=== PATIENT | male | born 1955 | race Caucasian/White ===

== ENCOUNTER 2018-11-24 01:46 | Emergency (ER) | payer BC, OTHER ==
[~2018-11-24] VITALS: Ht 177.8 cm; Wt 108.9 kg
[2018-11-24] MEDS ORDERED: NS (IVPB) 100 ML ONE ×3 (01:47→02:20)
[2018-11-24] MEDS ORDERED: EPINEPHrine INJECTION 1 MG/ML AMP ONE (01:47)
[2018-11-24] MEDS ORDERED: NS 1000 ML IV BAG IV ONE (01:49)
[2018-11-24] MEDS ORDERED: EPINEPHrine 0.1 MG/ML 10 ML (HOSPIRA) SYR IJ ONE (01:49)
[2018-11-24] MEDS ORDERED: SODIUM BICARB 8.4% 50 MEQ/50 ML (ABBOTT) SYR INJ ONE (01:49)
[2018-11-24] MEDS ORDERED: NS IV 1000 ML 1,000 ML ONE (01:52)
[2018-11-24] MEDS ORDERED: MIDAZOLAM 5 MG/5 ML (VERSED) VIAL ONE (01:59)
--- NOTE | 2018-11-24 02:00 | ED CPR ---
HPI-CPR General Stated Complaint: UNRESPONSIVE Source of Information: Family Exam Limitations: Other (intubated) History of Present Illness Date Seen by Provider: November 24, 2018 Time Seen by Provider: 01:35 Initial Comments The patient presents to the ER by EMS from home with chief complaint provided by his spouse who arrived shortly after his arrival. She says that he had awoken her a little before 1:00 in the morning complaining of some left chest pain that radiated down into his left arm. She said he went to go get his hat because she was going to take him into the ER and he collapsed in front of her and stopped breathing. She started CPR at the scene. EMS was summonsed and arrived within 10 minutes. She started CPR at 0100. EMS reports the patient had V. fib on the monitor and delivered a total of 4 shocks, 5 rounds of epinephrine en route as w ell as 300 mg of amiodarone and intubated the patient in the field. The used a 7.5 ET tube and had it at 26 at the teeth. The patient was estimated to be 230 pounds 5 foot 10 according to his . Patient's blood sugar was 1:30 per EMS. Return of spontaneous circulation was achieved just minutes prior to arrival to the ER. The denies a history of coronary disease, blood clotting disorders. He did just recently travel from [place] back to [place] via airplane in the last 3 days. He does not take any medications. He has no true allergies but his says that the Valium makes him act weird. Allergies and Home Medications Allergies Coded Allergies: diazepam (Verified Adverse Reaction, Unknown, acts weird, 11/24/18) Patient Home Medication List Home Medication List Reviewed: Yes Review of Systems Review of Systems Constitutional: see HPI EENTM: See HPI Respiratory: See HPI Cardiovascular: Chest Pain; Denies Edema Gastrointestinal: See HPI Genitourinary: See HPI Musculoskeletal: see HPI Psychiatric/Neurological: See HPI Past Amaimhl-Gokrtx-Vwjuws Hx Patient Social History Recreational Drug Use: No Smoking Status: Current Someday Smoker (occasional cigar) Type Used: Cigars (occasional) Physical Exam Vital Signs Capillary Refill : Height, Weight, BMI Height: '" Weight: lbs. oz. kg; BMI Method: General Appearance: Severe Distress, Other (orotracheally intubated) HEENT: TMs Normal, Pharynx Normal, Other (pupils 3 mm bilateral, equal, round and reactive to light) Neck: Full Range of Motion, Normal Inspection, Supple Respiratory: Lungs Clear, Other (orotracheally intubated with an ET tube 7.5, 25 at the teeth oxygen sats in the 90% range with an Ambu bag running at flush. Diminished breath sounds left side) Gastrointestinal: Non Tender, Soft Extremity: No No Pedal Edema; Slow Capillary Refill Neurologic/Psychiatric: Other (GCS 3T) Skin: Diaphoresis, Pallor Procedures/Interventions Lumen: triple Central Line Procedure: betadine prep (chlorhexidine prep), sterile drapes applied, sterile dressing applied Position: internal jugular (R) Anesthesia: Lidocaine Volume Anesthetic (ccs): 3 Complications: none Post Position: sutured, good blood return, position confirmed w/ CXR Consent was obtained by emergency need. Ultrasound demonstrated good, plump right internal jugular. Site was cleaned thoroughly using the provided chlorhexidine prep and then using the sterile drapes in the usual sterile fashion we prepared the patient. Flushed central line catheter with sterile normal saline. 3 cc of 1% lidocaine were applied over the site we would penetrate with the introducer needle. We then used ultrasound guidance to put the introducer needle into the right IJ getting easy withdrawal of blood. We removed the syringe and passed a guidewire with little difficulty and no ectopy seen on the monitor. We then made a small felix in the skin using the provided 11 blade scalpel and removed the introducer needle. We passed the dilator over the guidewire and removed it. We then placed the central lumen of the triple lumen catheter over the guidewire and removed the guidewire subsequently. We placed the triple lumen catheter at about 13 cm deep and put the claves on flush the catheter again. It withdrew and flushed easily. We stitched the triple lumen and place in 2 different places put the bile patch on clean the site up and placed a sterile dressing. Patient tolerated the procedure well. Postcentral line chest x -ray demonstrated the tip of the central catheter to be on the right side and resting just over the superior vena caval shadow superior to the right atrium. There is no pneumothorax noted on chest x-ray. Progress/Results/Core Measures Results/Orders Lab Results Laboratory Tests Test 11/24/18 02:20 11/24/18 02:30 Range/Units Blood Gas Puncture Site RT RADIAL Blood Gas Patient Temperature UNK Arterial Blood pH 7.20 *L 7.37-7.43 Arterial Blood Partial Pressure CO2 38 35-45 MMHG Arterial Blood Partial Pressure O2 207 H 79-93 MMHG Arterial Blood HCO3 15 *L 23-27 MMOL/L Arterial Blood Total CO2 16.1 L 21.0-31.0 MMOL/L Arterial Blood Oxygen Saturation 100 94-100 % Arterial Blood Base Excess -12.4 L -2.5-2.5 MMOL/L Alfredo Test PT NOT ABLE Blood Gas Ventilator Setting NO Blood Gas Inspired Oxygen BAG White Blood Count 11.3 H 4.3-11.0 10^3/uL Red Blood Count 4.68 4.35-5.85 10^6/uL Hemoglobin 13.5 13.3-17.7 G/DL Hematocrit 42 40-54 % Mean Corpuscular Volume 91 80-99 FL Mean Corpuscular Hemoglobin 29 25-34 PG Mean Corpuscular Hemoglobin Concent 32 32-36 G/DL Red Cell Distribution Width 13.3 10.0-14.5 % Platelet Count 151 130-400 10^3/uL Mean Platelet Volume 11.2 H 7.4-10.4 FL Neutrophils (%) (Auto) 57 42-75 % Lymphocytes (%) (Auto) 36 12-44 % Monocytes (%) (Auto) 4 0-12 % Eosinophils (%) (Auto) 2 0-10 % Basophils (%) (Auto) 1 0-10 % Neutrophils # (Auto) 6.5 1.8-7.8 X 10^3 Lymphocytes # (Auto) 4.1 H 1.0-4.0 X 10^3 Monocytes # (Auto) 0.5 0.0-1.0 X 10^3 Eosinophils # (Auto) 0.2 0.0-0.3 10^3/uL Basophils # (Auto) 0.1 0.0-0.1 10^3/uL D-Dimer 12.40 H 0.00-0.49 UG/ML Sodium Level 145 135-145 MMOL/L Potassium Level 3.2 L 3.6-5.0 MMOL/L Chloride Level 102 98-107 MMOL/L Carbon Dioxide Level 13 L 21-32 MMOL/L Anion Gap 30 H 5-14 MMOL/L Blood Urea Nitrogen 21 H 7-18 MG/DL Creatinine 1.19 0.60-1.30 MG/DL Estimat Glomerular Filtration Rate > 60 BUN/Creatinine Ratio 18 Glucose Level 242 H 70-105 MG/DL Calcium Level 7.3 L 8.5-10.1 MG/DL Corrected Calcium 7.7 L 8.5-10.1 MG/DL Magnesium Level 2.1 1.8-2.4 MG/DL Total Bilirubin 0.7 0.1-1.0 MG/DL Aspartate Amino Transf (AST/SGOT) 385 H 5-34 U/L Alanine Aminotransferase (ALT/SGPT) 451 H 0-55 U/L Alkaline Phosphatase 70 40-136 U/L Troponin T 88 H <=15 NG/L Total Protein 5.3 L 6.4-8.2 GM/DL Albumin 3.5 3.2-4.5 GM/DL My Orders Orders - CECI KIDD Epinephrine 1 Mg Injection (Adrenalin I (11/24/18 01:47) Ns (Ivpb) (Sodium Chloride 0.9% Ivpb Bag (11/24/18 01:47) Ns Iv 1000 Ml (Sodium Chloride 0.9%) (11/24/18 01:52) Cbc With Automated Diff (11/24/18 01:56) Comprehensive Metabolic Panel (11/24/18 01:56) Troponin T (11/24/18 01:56) Magnesium (11/24/18 01:56) Fibrin Degradation Products (11/24/18 01:56) Chest 1 View Ap/Pa Only (11/24/18 01:56) Midazolam Injection (Versed Injection) (11/24/18 01:59) Norepinephrine (Levophed) (11/24/18 02:03) Ns (Ivpb) (Sodium Chloride 0.9% Ivpb Bag (11/24/18 02:03) Ns (Ivpb) (Sodium Chloride 0.9%) (11/24/18 02:05) Fentanyl Injection (Sublimaze Injection (11/24/18 02:14) Epinephrine 1 Mg Injection (Adrenalin I (11/24/18 02:19) Ns (Ivpb) (Sodium Chloride 0.9% Ivpb Bag (11/24/18 02:20) Continuous Ekg Monitoring (11/24/18 02:39) Ekg Tracing (11/24/18 02:39) Arterial Blood Gas (11/24/18 02:20) Critical Care Note Critical Care Start Time: 01:35 Stop Time: 02:45 Total Time (minutes) 130 minutes Progress When the patient arrived by EMS he had return of spontaneous circulation with felt a weak thready pulse and he had about 750 cc of fluid and so we initiated another liter. He was given an amp of bicarbonate IV. A 16 and an 18-gauge in his antecubital spaces bilateral. He had diminished breath sounds on the left so we backed his ET tube off a little bit had good symmetric breath sounds afterwards. His oxygen saturations improved significantly. He had a end-tidal CO2 around 35-40. We instructed the EMS to give him breaths a little bit quicker. We then ordered an epinephrine drip Maxed 10 mcg/m. One half milligram of epinephrine was given as a push as his heart rate was beginning to slow down. The blood pressure was obtained right around 90 systolic. Heart rate and blood pressure improved with the IV fluids and epinephrine. The epinephrine drip was initiated peripherally. Airway was secure and circulation had improved significantly so we elected to obtain a triple lumen. As we were getting a chest x-ray to confirm ET tube placement and that there was no pneumothorax this provider got hold of the career center advisor at [place] ICU doctor Sariah. We gave a full report of our work and asked questions and then when he was accepted we went in and initiated a central line. Chest x-ray after the central line confirmed good placement in the superior vena cava just above the right atria so we switched her fluids and epinephrine over the central line. Levophed was called for as the blood pressure and heart rate were slipping. Levophed was initiated at 30 mcg/m. This brought his blood pressure up significantly to 140 systolic so we worked backwards from there down to 18 mcg/m. Oxygen saturations stayed around 94% on 1 00% oxygenation. Next step was to get him onto a ventilator but by that time the helicopter that had argument put on standby and called for was landing so we decided to continue using the Ambien mask and let them look at their own ventilator. EKG was obtained which did not show any ST changes. An OG tube was placed by nursing. Patient was beginning to stir, moving his arms and bucking the vent so 5 mg of Versed IV and 150 g of IV fentanyl were given as a bolus. Report was given over to the helicopter crew and we helped package him and get him onto their monitors and ventilator. Before putting him in flight a 100 mg dose of ketamine was given for sedation. At the time he left 2 L ran in and the third liter was about half in. They departed at 1457. We received her first digit of labs and ABG demonstrating that he was acidotic and had good oxygenation. This was a metabolic acidosis. On the ventilator he was placed at 20 respirations, PEEP of 5, tidal volume 450 FiO2 100%. By the time we had nursing staff available to run and obtain an heparin drip the patient was already rolling out towards the helipad. The patient's body temperature was 97 and we allowed him to stay cool as he was likely going to need to go for therapeutic cooling status post ROSC, witnessed V. fib arrest. Departure Impression Primary Impression: Cardiac arrest Additional Impressions: Ventricular fibrillation by electrocardiogram Signs of return of spontaneous circulation Respiratory failure requiring intubation Cardiogenic shock Disposition: XFER SHT-TRM HOSP Condition: Critical Transfer Time Spoke to Accepting Phy: 01:50 Transfer Progress Notes Discussed the case and plan to further stabilize the patient with Dr. Rolle (sp?) [employer] Developer at [place], [place]. He agrees with the current plan and accepts the patient. Transfer Time: 02:57 Transfer Facility: [place], [place] Method of Transfer: Air Departure-Patient Inst. Referrals: NO,LOCAL PHYSICIAN (PCP/Family) Primary Care Physician CECI KIDD November 24, 2018 02:00
[2018-11-24] MEDS: EPINEPHrine INJECTION 1 MG/ML AMP ONE ×2 (02:03→02:30)
[2018-11-24] MEDS ORDERED: NOREPINEPHRINE 4 MG/4 ML (LEVOPHED) AMP IV ONE (02:03)
[2018-11-24] MEDS: NS (IVPB) 250 ML ONE (02:07)
[2018-11-24] MEDS ORDERED: fentaNYL INJECTION 100 MCG/2 ML AMP ONE (02:14)
[2018-11-24 02:49] LABS: HEMATOCRIT 42 % (40-54); HEMOGLOBIN 13.5 G/DL (13.3-17.7); LYMPHOCYTES % (AUTO) 36 % (12-44); MEAN CORPUSCULAR HEMOGLOBIN 29 PG (25-34); MEAN CORPUSCULAR HGB CONC 32 G/DL (32-36); MEAN CORPUSCULAR VOLUME 91 FL (80-99); MEAN PLATELET VOLUME 11.2 FL (7.4-10.4); PLATELET COUNT 151 10^3/uL (130-400); RED CELL DISTRIBUTION WIDTH 13.3 % (10.0-14.5); WHITE BLOOD COUNT 11.3 10^3/uL (4.3-11.0)
[2018-11-24 02:50] LABS: BASOPHILS # (AUTO) 0.1 10^3/uL (0.0-0.1); BASOPHILS % (AUTO) 1 % (0-10); EOSINOPHILS # (AUTO) 0.2 10^3/uL (0.0-0.3); EOSINOPHILS % (AUTO) 2 % (0-10); LYMPHOCYTES # (AUTO) 4.1 X 10^3 (1.0-4.0); MONOCYTES # (AUTO) 0.5 X 10^3 (0.0-1.0); MONOCYTES % (AUTO) 4 % (0-12); NEUTROPHILS # (AUTO) 6.5 X 10^3 (1.8-7.8); NEUTROPHILS % (AUTO) 57 % (42-75)
[2018-11-24 02:51] LABS: ABG BASE EXCESS -12.4 MMOL/L (-2.5-2.5); ABG OXYGEN SATURATION 100 % (94-100); ABG PCO2 38 MMHG (35-45); ABG PO2 207 MMHG (79-93); ABG TCO2 16.1 MMOL/L (21.0-31.0)
[2018-11-24 02:52] LABS: ALLENS TEST PT NOT ABLE
[2018-11-24 02:55] LABS: ALANINE AMINOTRANSFERASE 451 U/L (0-55); ALBUMIN 3.5 GM/DL (3.2-4.5); ALKALINE PHOSPHATASE 70 U/L (40-136); BILIRUBIN,TOTAL 0.7 MG/DL (0.1-1.0); BUN/CREATININE RATIO 18; CALCIUM 7.3 MG/DL (8.5-10.1); CARBON DIOXIDE 13 MMOL/L (21-32); CHLORIDE 102 MMOL/L (98-107); CREATININE SERUM 1.19 MG/DL (0.60-1.30); GFR ESTIMATED > 60; GLUCOSE 242 MG/DL (70-105); MAGNESIUM 2.1 MG/DL (1.8-2.4); POTASSIUM 3.2 MMOL/L (3.6-5.0); SODIUM 145 MMOL/L (135-145); TOTAL PROTEIN 5.3 GM/DL (6.4-8.2)
[2018-11-24 02:57] VITALS: BP 145/86
--- NOTE | 2018-11-24 02:57 | NUR ---
0146: Patient intubated, airway controlled BVM, ROSC achieved, Sinus Rhythm 0149: 1 amp Sodium Bicarb left AC 0150: 0.5mg of Epi left AC, at bedside, spoke with physician about patient, agrees to transfer 0152: 1L NS started 0154: Epi drip started at 120mls/hour, concentration 1mg/ml epi in 100 ml NS 0156: Epi drip increased to 180mls/hour, concentration 1mg/ml epi in 100 ml NS 0157: 1L NS started (second bag), patient continues to maintain ROSC 0204: 5mg Versed right AC 0207: Levophed drip started, concentration 4mg in 250ml NS at 10mls/hour 0221: 150mcg Fentanyl right AC 0230: Central line place in right neck by Dr. French, verified by xray, labs drawn 0232: [facility] arrived 0240: OG placed, verified by Jenny URIOSTEGUI, secured 0241: EKG Obtained, patient maintaining ROSC, sinus rhythm 0257: Patient leaves with [facility] Addendum: 11/25/18 at 2158 by MELVIN Epi drip concentration is 10mcg/ml, not 10mg/ml.
[2018-11-24 03:07] LABS: INSPIRED O2 BAG; VENTILATOR NO
--- NOTE | 2018-11-24 06:10 | Diagnostic Imaging Report ---
INDICATION: Intubated, code blue COMPARISON: None FINDINGS: Single view of the chest demonstrates mild cardiac enlargement. The lungs are clear. There is no pneumothorax or effusion. The ET tube is just above the shai. There is no pneumothorax. Osseous structures are age-appropriate. IMPRESSION: 1. ET tube just above the shai 2. Cardiac enlargement without pulmonary edema or infiltrate Dictated by: Dictated on workstation # [id number]
[2018-11-25] MEDS: NS (IVPB) 250 ML ONE (02:07)
[2018-11-25] MEDS ORDERED: NS IV 1000 ML 1,000 ML IV ONE (22:45)
== END 2018-11-24 02:57 | disposition short-term general hospital (02) ==
LOC: ER FS 01:48
DX: I46.9 Cardiac arrest, cause unspecified (principal); I49.01 Ventricular fibrillation; J96.90 Respiratory failure, unspecified, unspecified whether with hypoxia or hypercapnia; F17.290 Nicotine dependence, other tobacco product, uncomplicated; Z88.8 Allergy status to other drugs, medicaments and biological substances
CPT/HCPCS: 36415; 71045; 80053; 82805; 83735; 84484; 85025; 85379; 93005; 96361; 96374; 96375